=== PATIENT | female | born 1950 | race Caucasian/White ===

== ENCOUNTER 2018-02-07 06:40 | Day surgery (SDC) | payer MEDICARE ==
[2018-02-04 13:33] VITALS: BMI 41.5
[2018-02-07 07:37] VITALS: BP 130/82; TEMP 97.3
[2018-02-07] MEDS ORDERED: Iopamidol-M 300 61% 15 ML VIAL ONE (08:37)
--- NOTE | 2018-02-07 10:49 | RAD ---
CERVICAL SPINE: Date: 02/07/18 HISTORY: Cervical radiculopathy. Lateral views were obtained with neutral, flexion, and extension positions. Oblique views were obtain ed. FINDINGS: Postop changes are noted. Anterior plate and screws transfix C4, C5, C6, and C7 with interbody implan ts at these levels and partial fusion. Posterior pedicle screws are noted with rods transfixing C4, C 5, C6, C7, and T1. Posterior alignment is preserved. Vertebral body height is maintained. No abnormal subluxation or lis thesis seen with flexion or extension. The C2-3 and C3-4 disc spaces are normally maintained. Foramin a appear patent on oblique views. IMPRESSION: Postoperative changes of cervical spine noted as described. POS: [facility]
--- NOTE | 2018-02-07 11:32 | RAD ---
CERVICAL MYELOGRAM: Date: 02/07/18 HISTORY: Cervical radiculopathy. COMPARISON: 09/03/16. EXPOSURE: 0.9 minutes. 410.8 mGy*cm^2. FINDINGS: Initial 2 view lumbar spine production manager radiograph demonstrates five lumbar-type vertebral bodies. Vertebra l body height is maintained. No significant loss of disc space height. No malalignment. Successful lumbar puncture for intrathecal contrast administration. A total of 9 mL of Isovue-M300 co ntrast was administered at the L2-L3 level. THE PATIENT tolerated the procedure well. No immediate or postprocedural complications. TECHNIQUE: Consent obtained to perform a lumbar puncture for intrathecal contrast administration. The L2-L3 leve l was deemed appropriate. Skin was prepped and draped in the sterile fashion. 1% lidocaine, buffered with sodium bicarbonate, was used for local anesthesia. Under fluoroscopic guidance, a 22 gauge spina l needle was advanced in the CSF space. There is prompt flow of clear CSF. A total of 9 mL of Isovue- M300 contrast was administered intrathecally. There are no immediate or postprocedural complications. IMPRESSION: Successful cervical myelogram. POS: [facility]
--- NOTE | 2018-02-07 12:18 | CT ---
CT CERVICAL MYELOGRAM: Date: 02/07/18 COMPARISON: 09/03/16. HISTORY: Cervical fusion. Cervical radiculopathy. TECHNIQUE: Post myelogram cervical spine CT is performed in the axial plane. Reformatted images are submitted fo r interpretation. FINDINGS: Cervical spine vertebral body height is maintained and there is no fracture. There is no malalignment . There are posterior fusion changes at C4-T1. No perihardware lucency. Anterior fusion plate with tr ansvertebral body screw from C4-C7. Disc prosthesis at C4-C5, C5-C6, and C6-C7. Anterior fusion hardw are is also uncomplicated. Visualized soft tissue neck structures are unremarkable. Upper mediastinum and lung apices are unremarkable. C2-C3: Central disc bulge. Minimal central osteophyte complex. No significant central canal stenosis. Right neural foramen is patent. Minimal left foraminal narrowing. C3-C4: Broad based disc bulge. No significant central canal stenosis. Bilaterally, neural foramina are paten t. Mild right facet hypertrophy. C4-C5: Minimal central osteophyte ridge. No significant central canal stenosis. Neural foramina are patent. C5-C6: Central osteophyte ridge. No significant central canal stenosis. Neural foramina are patent. C6-C7: No significant central canal stenosis. Neural foramina are patent. C7-T1: No significant central canal stenosis. Neural foramina are patent. IMPRESSION: 1. Uncomplicated cervical fusion hardware. 2. No significant central canal stenosis or foraminal narrowing. POS: [facility]
== END 2018-02-07 10:30 | disposition home or self-care (01) ==
LOC: RAD 06:40
PROVIDERS: ATTEND Anesthesiology Pain Medicine
PROC: B02B1ZZ Computerized Tomography (CT Scan) of Spinal Cord using Low Osmolar Contrast (ICD-10-PCS; principal; 2018-02-07)
DX: M54.12 Radiculopathy, cervical region (principal); Z98.1 Arthrodesis status
CPT/HCPCS: 62302; 72052; 72126

== ENCOUNTER 2018-03-15 13:15 | Outpatient (CLI) | payer MEDICARE ==
--- NOTE | 2018-03-15 17:58 | MRI ---
MR OF THE THORACIC SPINE WITHOUT CONTRAST: 03/15/18 INDICATION: Thoracic spine radiculopathy. COMPARISON: None. FINDINGS: There is susceptibility artifact from instrumentation involving the lower cervical spine as well as T 1. No acute fracture is evident. There is multilevel spondylosis of the thoracic spine. At T1-T2, there is no appreciable central canal or neural foraminal narrowing. At T2-T3, there is no appreciable central canal or neural foraminal narrowing. At T3-T4, there is a small central protrusion but no appreciable central canal or neural foraminal na rrowing. At T4-T5, there is a small central protrusion but no appreciable central canal or neural foraminal na rrowing. At T5-T6, there is a small central protrusion without appreciable central canal or neural foraminal n arrowing. There is asymmetric moderate left facet joint hypertrophy involving the T5-T6 level. At T6-T7, there is small broad based bulge but no appreciable central canal or neural foraminal narro wing. At T7-T8, there is no appreciable central canal or neural foraminal narrowing. At T8-T9, there is no appreciable central canal or neural foraminal narrowing. At T9-T10, there is no appreciable central canal or neural foraminal narrowing. At T10-T11, there is no appreciable central canal or neural foraminal narrowing. At T11-T12, there is no appreciable central canal or neural foraminal narrowing. At T12-L1, there is no appreciable central canal or neural foraminal narrowing. 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 POS: [facility]
== END 2018-03-15 13:16 | disposition home or self-care (01) ==
LOC: BICMRI 13:15
PROVIDERS: ATTEND Specialist
DX: M47.24 Other spondylosis with radiculopathy, thoracic region (principal)
CPT/HCPCS: 72146